=== PATIENT | male | born 1990 | race Caucasian/White ===

== ENCOUNTER 2023-02-22 09:47 | Outpatient (CLI) | payer BC | END 2023-02-22 09:48 | disposition home or self-care (01) | LOC: ULT 09:47 | PROVIDERS: ATTEND Family Medicine | DX: R74.01 Elevation of levels of liver transaminase levels (principal); K82.8 Other specified diseases of gallbladder; K76.89 Other specified diseases of liver | CPT/HCPCS: 76700 ==